=== PATIENT | male | born 1990 | race African-American/Black ===

== ENCOUNTER 2024-02-22 18:48 | Emergency (ER) | payer SELFPAY ==
[2024-02-22 19:14] VITALS: BP 96/64; PULSE 65; RESP 18; TEMP 98.6; BMI 27.3
[2024-02-22 20:43] LABS: BASO % 0.7 % (0-2.0); EOS % 4.4 % (0-4.5); HEMATOCRIT 40.3 % (35.4-49); HEMOGLOBIN 13.1 GM/dL (11.7-16.9); LYMPH % 40.3 % (8-40); MCH 27.8 pg (25.7-33.7); MCHC 32.6 g/dl (32.0-35.9); MEAN CELL VOLUME 85.2 fl (80-96); MEAN PLT VOLUME 9.5 fl (7.5-11.1); MONO % 9.4 % (3.8-10.2); NEUT % 45.2 % (42.8-82.8); PLATELET COUNT 164 10^3/uL (134-434); RBC 4.73 M/mm3 (4.00-5.60); WHITE BLOOD COUNT 4.7 K/mm3 (4.0-10.0)
[2024-02-22] MEDS ORDERED: ACETAMINOPHEN INJECTION 100 ML IVPB ONE (20:43)
[2024-02-22] MEDS ORDERED: FAMOTIDINE 20 MG/50 ML IVPB 20 MG/50 ML MG IVPB ONE (20:43)
[2024-02-22] MEDS: SODIUM CHLORIDE 0.9% 500 ML INFUS.BAG IV ONE (20:53)
[2024-02-22] MEDS: ACETAMINOPHEN 1000 MG/100 ML BAG IVPB ONE (20:54)
[2024-02-22] MEDS: FAMOTIDINE 20 MG/50 ML IVPB 20 MG/50 ML MG IVPB ONE (20:54)
[2024-02-22 21:06] LABS: POTASSIUM 3.8 mmol/L (3.5-5.1)
[2024-02-22 21:08] LABS: BLOOD UREA NITROGEN 13.6 mg/dL (7-18); CALCIUM 9.8 mg/dL (8.5-10.1)
[2024-02-22 21:09] LABS: ALBUMIN 3.5 g/dl (3.4-5.0)
[2024-02-22 21:13] LABS: BILIRUBIN,TOTAL 0.4 mg/dL (0.2-1)
[2024-02-22] MEDS: POLYETHYLENE GLYCOL (HEALTHYLAX) 3350 17 GM PACKET PO SCH (23:46)
== END 2024-02-23 00:07 | disposition home or self-care (01) ==
LOC: JER 18:48
PROC: 3E033GC Introduction of Other Therapeutic Substance into Peripheral Vein, Percutaneous Approach (ICD-10-PCS; principal; 2024-02-22)
PROC: 3E033NZ Introduction of Analgesics, Hypnotics, Sedatives into Peripheral Vein, Percutaneous Approach (ICD-10-PCS; 2024-02-22)
DX: R10.13 Epigastric pain (principal); R51.9 Headache, unspecified; Z20.822 Contact with and (suspected) exposure to COVID-19
CPT/HCPCS: 0241U-QW; 36415; 71046-TC-FY; 74177-TC; 80053; 83690; 84484; 85025; 93005; 93010; 99285-25; J0131; Q9967